=== PATIENT | male | born 1960 | race Two or more races ===

== ENCOUNTER 2021-10-05 09:19 | Inpatient (IN) | payer MEDICAID ==
[~2021-10-05] VITALS: Ht 182.9 cm; Wt 108.5 kg
[2021-10-05] MEDS ORDERED: AZITHROMYCIN 500MG/ 250ML 250 ML IV ONE (10:00)
[2021-10-05] MEDS ORDERED: cefTRIAXone 1GM/50ML D5W 50 ML IV ONE (10:00)
[2021-10-05] MEDS ORDERED: DexAMETHasone SOD PHOS 10MG/1ML VIAL INJ IV ONE (10:00)
[2021-10-05 11:32] LABS: Basophils # (auto) 0 10 ^3/uL (0-0.2); Basophils % (auto) 0.3 % (0.0-2.0); Eosinophils # (auto) 0 10 ^3/uL (0-0.8); Eosinophils % (auto) 0.2 % (0.0-7.0); Hematocrit 49.8 % (41.0-53.0); Hemoglobin 17.2 g/dL (13.5-17.5); Lymphocytes # (auto) 0.8 10 ^3/uL (0.4-5.4); Lymphocytes % (auto) 13.5 % (10.0-50.0); Mean Corpuscular Hemoglobin 30.9 pg (28.0-32.0); Mean Corpuscular Hgb Conc. 34.5 g/dL (32.0-36.0); Mean Corpuscular Volume 89.8 fL (80.0-100.0); Monocytes # (auto) 0.7 10 ^3/uL (0-1.3); Monocytes % (auto) 11.7 % (0.0-12.0); Neutrophils # (auto) 4.6 10 ^3/uL (1.6-8.6); Neutrophils % (auto) 74.3 % (37.0-80.0); Nucleated Red Blood Cells % 0.1 %; Red Blood Cells 5.55 10^6/uL (4.5-5.90); Red Cell Distribution Width 14.7 % (11.8-14.3); White Blood Cell 6.2 10^3/uL (4.4-10.8)
[2021-10-05 11:51] LABS: Calcium 8.7 mg/dL (8.5-10.1); Potassium 4.2 mmol/L (3.5-5.1)
[2021-10-05 12:00] LABS: Albumin 3.2 g/dL (3.4-5.0); BUN/Creatinine Ratio 23.7; Bilirubin, Total 0.6 mg/dL (0.2-1.0); Total Protein 7.8 g/dL (6.4-8.2)
[2021-10-05] MEDS ORDERED: NITROGLYCERIN 0.4 MG SL TAB SL PRN ×2 (13:30→15:30)
[2021-10-05] MEDS ORDERED: MORPHINE SULFATE INJECTION 2 MG/ML SYRG IV PRN ×3 (13:30→15:30)
[2021-10-05] MEDS ORDERED: LORazepam 0.5 MG TAB PO PRN (15:30)
[2021-10-05] MEDS ORDERED: HYDROcodone-ACET 5/325MG TAB PO PRN (15:30)
[2021-10-05] MEDS ORDERED: METOCLOPRAMIDE HCL 5MG/ml INJ 2ml VIAL IV PRN (15:30)
[2021-10-05] MEDS: SODIUM CHLORIDE 0.9% 1,000 ML IV SCH (15:30)
[2021-10-05] MEDS ORDERED: REMDESIVIR PER PHARMACY 0 ML IV SCH (15:30)
[2021-10-05] MEDS ORDERED: ALUM & MAG HYDROX-SIMETH LIQ(MAALOX) 30 ML PO PRN (15:30)
[2021-10-05] MEDS ORDERED: ACETAMINOPHEN 500 MG TAB PO PRN (15:30)
[2021-10-05] MEDS ORDERED: DOCUSATE SOD 100 MG CAP PO PRN (15:30)
[2021-10-05] MEDS ORDERED: FAMOTIDINE (10MG/ML) 2ML VL IV ONE (15:45)
[2021-10-05] MEDS: CHOLECALCIFEROL (VITD3) 2,000 UNIT CAP/TAB PO SCH (15:59)
[2021-10-05] MEDS: ZINC SULFATE 220mg CAP or TAB PO SCH (15:59)
[2021-10-05 17:04] LABS: Magnesium 2.5 mg/dL (1.6-2.6)
[2021-10-05 17:09] LABS: Thyroid Stimulating Hormone 0.95 uIU/mL (0.358-3.74)
[2021-10-05 17:11] LABS: Cholesterol 95 mg/dL (< 200)
[2021-10-05 17:13] LABS: CRP High Sensitivity 1.4 mg/dL (< 0.3)
[2021-10-05 17:14] LABS: HDL Cholesterol 31 mg/dL (40-59); LDL Cholesterol 41 mg/dL (< 100); Triglycerides 108 mg/dL (< 150)
[2021-10-05 19:34] LABS: Albumin 3.3 g/dL (3.4-5.0); Calcium 8.9 mg/dL (8.5-10.1); Potassium 4.2 mmol/L (3.5-5.1)
[2021-10-05 19:41] LABS: BUN/Creatinine Ratio 24.4; Bilirubin, Total 0.5 mg/dL (0.2-1.0); Total Protein 7.8 g/dL (6.4-8.2)
[2021-10-05] MEDS ORDERED: ATORVASTATIN 20 MG TAB PO SCH (22:00)
[2021-10-05] MEDS ORDERED: REMDESIVIR 200 MG in NS 210ml LOADING DOSE ADULT IV ONE (22:00)
[2021-10-05] MEDS: ENOXAPARIN SOD 40 MG/0.4 ML SYRINGE SC SCH (22:00)
[2021-10-05] MEDS: FAMOTIDINE (10MG/ML) 2ML VL IV SCH (22:00)
[2021-10-05] MEDS: BUDESONIDE (INHALATION) 180 MCG IH IN SCH (22:00)
[2021-10-06 04:19] VITALS: BP 141/86
[2021-10-06 08:00] VITALS: BP 144/88
[2021-10-06 09:00] VITALS: BP_SYST 117; BP_SYST 144; BP_DIAS 88; BP_DIAS 91
[2021-10-06] MEDS: BUDESONIDE (INHALATION) 180 MCG IH IN SCH ×2 (09:50→19:07)
[2021-10-06] MEDS: cefTRIAXone 1GM/50ML D5W 50 ML IV SCH (10:20)
[2021-10-06] MEDS: DexAMETHasone SOD PHOS 10MG/1ML VIAL INJ IV SCH (10:20)
[2021-10-06] MEDS: ENOXAPARIN SOD 40 MG/0.4 ML SYRINGE SC SCH ×2 (10:21→21:20)
[2021-10-06] MEDS: CHOLECALCIFEROL (VITD3) 2,000 UNIT CAP/TAB PO SCH (10:21)
[2021-10-06] MEDS: ZINC SULFATE 220mg CAP or TAB PO SCH (10:21)
[2021-10-06] MEDS: ASPirin 81 mg TAB PO SCH (10:22)
[2021-10-06] MEDS: FAMOTIDINE (10MG/ML) 2ML VL IV SCH ×2 (10:22→21:20)
[2021-10-06] MEDS: SODIUM CHLORIDE 0.9% 1,000 ML IV SCH (10:33)
[2021-10-06 10:49] LABS: Hematocrit 48.2 % (41.0-53.0); Hemoglobin 15.9 g/dL (13.5-17.5); Mean Corpuscular Hemoglobin 29.4 pg (28.0-32.0); Mean Corpuscular Volume 89.1 fL (80.0-100.0); Red Blood Cells 5.41 10^6/uL (4.5-5.90); Red Cell Distribution Width 14.5 % (11.8-14.3); White Blood Cell 5.1 10^3/uL (4.4-10.8)
[2021-10-06 10:53] LABS: Basophils % (manual) 0 (0.0-2.0); Blast Cells 0; Metamyelocytes % 0; Myelocytes % 0; Promyelocytes % 0; Reactive Lymphocytes 0
[2021-10-06 11:03] LABS: Albumin 2.8 g/dL (3.4-5.0); INR 1.16 (0.9-1.15); Partial Thromboplastin Time 30.9 sec (23.6-33.0); Potassium 4.3 mmol/L (3.5-5.1)
[2021-10-06 11:07] LABS: BUN/Creatinine Ratio 20.3; Calcium 8.4 mg/dL (8.5-10.1); Magnesium 2.1 mg/dL (1.6-2.6)
[2021-10-06 11:17] LABS: Bilirubin, Total 0.5 mg/dL (0.2-1.0); Phosphorus 3.6 mg/dL (2.5-4.90); Total Protein 6.7 g/dL (6.4-8.2)
[2021-10-06 11:42] LABS: Band Neutrophils % (manual) 2; Eosinophils % (manual) 2 (0-7); Lymphocytes % (manual) 18 (10.0-50.0); Monocytes % (manual) 9 (0-12)
[2021-10-06 13:00] VITALS: BP 137/82
[2021-10-06] MEDS: AZITHROMYCIN 500MG/ 250ML 250 ML IV SCH (13:54)
[2021-10-06 17:00] VITALS: BP 146/86
[2021-10-06] MEDS ORDERED: DEXTROSE (50%) 50ML SYRG IV PRN (17:30)
[2021-10-06] MEDS: InsuLIN REG 1unit/0.01ml Soln (100units/ml) SC SCH (18:42)
[2021-10-06] MEDS: ACCU-CHEK COMFORT CURVE STRIP VI SCH (18:43)
[2021-10-06 22:00] VITALS: BP 149/105
[2021-10-07] VITALS (7 sets, daily range): BP systolic 139–151; BP diastolic 90–108
[2021-10-07] MEDS: ACCU-CHEK COMFORT CURVE STRIP VI SCH ×4 (01:25→18:00)
[2021-10-07] MEDS: InsuLIN REG 1unit/0.01ml Soln (100units/ml) SC SCH ×4 (06:00→18:00)
[2021-10-07] MEDS: ALBUTEROL SULF HFA 90MCG INH 200DOSE IN PRN ×2 (07:23→21:12)
[2021-10-07 07:27] LABS: Urine Bacteria FEW /hpf (None Seen); Urine Blood Negative /uL (Negative); Urine Specific Gravity 1.016 (1.001-1.035); Urine Sperm PRESENT /hpf (None Seen); Urine WBC 1 /hpf (0 - 3)
[2021-10-07 07:38] LABS: Alcohol, Urine < 3.0 mg/dL (0-10); Amphetamine Screen, Urine NEGATIVE (NEGATIVE); Barbiturate Scree,Urine NEGATIVE (NEGATIVE); Benzodiazephine Screen, Urine NEGATIVE (NEGATIVE); Cannabinoid Screen, Urine NEGATIVE (NEGATIVE); Cocaine Screen, Urine NEGATIVE (NEGATIVE); Opiate Scree,Urine NEGATIVE (NEGATIVE); Phencyclidine Screen, Urine NEGATIVE (NEGATIVE)
[2021-10-07 08:28] LABS: Albumin 3.1 g/dL (3.4-5.0); Calcium 8.7 mg/dL (8.5-10.1); Potassium 4.2 mmol/L (3.5-5.1)
[2021-10-07 08:34] LABS: BUN/Creatinine Ratio 17.1; Bilirubin, Total 0.6 mg/dL (0.2-1.0); Total Protein 7.6 g/dL (6.4-8.2)
[2021-10-07] MEDS: BUDESONIDE (INHALATION) 180 MCG IH IN SCH ×2 (09:43→21:12)
[2021-10-07] MEDS: cefTRIAXone 1GM/50ML D5W 50 ML IV SCH (09:48)
[2021-10-07] MEDS: DexAMETHasone SOD PHOS 10MG/1ML VIAL INJ IV SCH (09:49)
[2021-10-07] MEDS: FAMOTIDINE (10MG/ML) 2ML VL IV SCH ×2 (09:50→22:07)
[2021-10-07] MEDS: ENOXAPARIN SOD 40 MG/0.4 ML SYRINGE SC SCH ×2 (09:50→22:07)
[2021-10-07] MEDS: ZINC SULFATE 220mg CAP or TAB PO SCH (09:50)
[2021-10-07] MEDS: CHOLECALCIFEROL (VITD3) 2,000 UNIT CAP/TAB PO SCH (09:50)
[2021-10-07] MEDS: ASPirin 81 mg TAB PO SCH (09:50)
[2021-10-07] MEDS: AZITHROMYCIN 500MG/ 250ML 250 ML IV SCH (12:00)
[2021-10-07] MEDS ORDERED: IOHEXOL 350 MG/ML 100ML IJ ONE (12:05)
[2021-10-07 14:08] LABS: Hepatitis A Ab IgM Negative; Hepatitis B Core IgM Negative; Hepatitis C Antibody Negative (Negative)
[2021-10-07] MEDS: REMDESIVIR 100mg 100 MG in SODIUM CHL 0.9% 230 ML IV SCH (15:13)
[2021-10-07] MEDS ORDERED: hydrALAZINE HCL 20 MG/ML VL IV PRN (19:15)
[2021-10-08] MEDS: InsuLIN REG 1unit/0.01ml Soln (100units/ml) SC SCH ×5 (00:15→22:43)
[2021-10-08 05:31] VITALS: BP 155/100
[2021-10-08] MEDS: BUDESONIDE (INHALATION) 180 MCG IH IN SCH ×3 (06:10→20:00)
[2021-10-08] MEDS: ALBUTEROL SULF HFA 90MCG INH 200DOSE IN PRN ×2 (06:10→20:01)
[2021-10-08] MEDS: ACCU-CHEK COMFORT CURVE STRIP VI SCH ×4 (06:35→18:00)
[2021-10-08] MEDS: cefTRIAXone 1GM/50ML D5W 50 ML IV SCH (09:00)
[2021-10-08 09:30] VITALS: BP 149/100
[2021-10-08 09:44] LABS: Albumin 3.3 g/dL (3.4-5.0); Calcium 8.8 mg/dL (8.5-10.1); Potassium 4.1 mmol/L (3.5-5.1)
[2021-10-08 09:48] LABS: BUN/Creatinine Ratio 16.8; Bilirubin, Total 0.8 mg/dL (0.2-1.0)
[2021-10-08] MEDS: DexAMETHasone SOD PHOS 10MG/1ML VIAL INJ IV SCH (10:00)
[2021-10-08] MEDS: ENOXAPARIN SOD 40 MG/0.4 ML SYRINGE SC SCH ×2 (10:00→22:43)
[2021-10-08] MEDS: ASPirin 81 mg TAB PO SCH (10:00)
[2021-10-08] MEDS: FAMOTIDINE (10MG/ML) 2ML VL IV SCH ×2 (10:00→22:42)
[2021-10-08] MEDS: CHOLECALCIFEROL (VITD3) 2,000 UNIT CAP/TAB PO SCH (10:00)
[2021-10-08] MEDS: AZITHROMYCIN 500MG/ 250ML 250 ML IV SCH (10:00)
[2021-10-08] MEDS: LISINOPRIL 20 MG TAB PO SCH (10:00)
[2021-10-08] MEDS: ZINC SULFATE 220mg CAP or TAB PO SCH (10:00)
[2021-10-08 13:00] VITALS: BP 128/83
[2021-10-08] MEDS: REMDESIVIR 100mg 100 MG in SODIUM CHL 0.9% 230 ML IV SCH (15:45)
[2021-10-08 16:41] VITALS: BP 125/81
[2021-10-08 20:00] VITALS: BP 149/100
[2021-10-08 22:00] VITALS: BP 115/86
[2021-10-09 05:00] VITALS: BP 118/76
[2021-10-09] MEDS: InsuLIN REG 1unit/0.01ml Soln (100units/ml) SC SCH ×3 (06:00→18:00)
[2021-10-09] MEDS: ACCU-CHEK COMFORT CURVE STRIP VI SCH ×4 (06:07→17:51)
[2021-10-09 07:09] LABS: INR 1.21 (0.9-1.15)
[2021-10-09 08:00] VITALS: BP 126/81
[2021-10-09] MEDS: cefTRIAXone 1GM/50ML D5W 50 ML IV SCH (09:00)
[2021-10-09] MEDS: BUDESONIDE (INHALATION) 180 MCG IH IN SCH ×2 (09:05→21:10)
[2021-10-09] MEDS: ALBUTEROL SULF HFA 90MCG INH 200DOSE IN PRN ×2 (09:05→23:20)
[2021-10-09] MEDS: ZINC SULFATE 220mg CAP or TAB PO SCH (10:00)
[2021-10-09] MEDS: DexAMETHasone SOD PHOS 10MG/1ML VIAL INJ IV SCH (10:00)
[2021-10-09] MEDS: ENOXAPARIN SOD 40 MG/0.4 ML SYRINGE SC SCH ×2 (10:00→21:21)
[2021-10-09] MEDS: ASPirin 81 mg TAB PO SCH (10:00)
[2021-10-09] MEDS: FAMOTIDINE (10MG/ML) 2ML VL IV SCH ×2 (10:00→21:21)
[2021-10-09] MEDS: CHOLECALCIFEROL (VITD3) 2,000 UNIT CAP/TAB PO SCH (10:00)
[2021-10-09] MEDS: LISINOPRIL 20 MG TAB PO SCH (10:00)
[2021-10-09] MEDS: AZITHROMYCIN 500MG/ 250ML 250 ML IV SCH (10:00)
[2021-10-09 12:00] VITALS: BP 114/78
[2021-10-09] MEDS: REMDESIVIR 100mg 100 MG in SODIUM CHL 0.9% 230 ML IV SCH (15:35)
[2021-10-09 16:01] VITALS: BP 117/85
[2021-10-09 22:00] VITALS: BP 114/69
[2021-10-10] MEDS: ACCU-CHEK COMFORT CURVE STRIP VI SCH ×4 (00:15→17:59)
[2021-10-10 05:00] VITALS: BP 115/69
[2021-10-10] MEDS: InsuLIN REG 1unit/0.01ml Soln (100units/ml) SC SCH ×4 (06:00→18:00)
[2021-10-10 07:18] LABS: Potassium 5.3 mmol/L (3.5-5.1)
[2021-10-10 07:26] LABS: BUN/Creatinine Ratio 23.5; Bilirubin, Total 0.8 mg/dL (0.2-1.0); Calcium 8.4 mg/dL (8.5-10.1); Total Protein 7.2 g/dL (6.4-8.2)
[2021-10-10 08:00] VITALS: BP 110/76
[2021-10-10] MEDS: ALBUTEROL SULF HFA 90MCG INH 200DOSE IN PRN ×2 (08:02→19:54)
[2021-10-10] MEDS: BUDESONIDE (INHALATION) 180 MCG IH IN SCH ×2 (08:02→19:54)
[2021-10-10] MEDS: cefTRIAXone 1GM/50ML D5W 50 ML IV SCH (09:00)
[2021-10-10] MEDS: ZINC SULFATE 220mg CAP or TAB PO SCH (10:00)
[2021-10-10] MEDS: AZITHROMYCIN 500MG/ 250ML 250 ML IV SCH (10:00)
[2021-10-10] MEDS: LISINOPRIL 20 MG TAB PO SCH (10:00)
[2021-10-10] MEDS: ASPirin 81 mg TAB PO SCH (10:00)
[2021-10-10] MEDS: DexAMETHasone SOD PHOS 10MG/1ML VIAL INJ IV SCH (10:00)
[2021-10-10] MEDS: CHOLECALCIFEROL (VITD3) 2,000 UNIT CAP/TAB PO SCH (10:00)
[2021-10-10] MEDS: ENOXAPARIN SOD 40 MG/0.4 ML SYRINGE SC SCH ×2 (10:00→22:35)
[2021-10-10] MEDS: FAMOTIDINE (10MG/ML) 2ML VL IV SCH ×2 (10:00→22:35)
[2021-10-10 12:00] VITALS: BP 111/78
[2021-10-10] MEDS ORDERED: SODIUM ZIRCONIUM CYCL 10 GM PAK PO ONE (13:30)
[2021-10-10] MEDS: REMDESIVIR 100mg 100 MG in SODIUM CHL 0.9% 230 ML IV SCH (15:00)
[2021-10-10 16:00] VITALS: BP 103/69
[2021-10-10 22:00] VITALS: BP 96/61
[2021-10-11] MEDS: ACCU-CHEK COMFORT CURVE STRIP VI SCH ×4 (00:14→17:05)
[2021-10-11 05:00] VITALS: BP 116/84
[2021-10-11] MEDS: InsuLIN REG 1unit/0.01ml Soln (100units/ml) SC SCH ×4 (06:00→17:06)
[2021-10-11 09:07] LABS: INR 1.18 (0.9-1.15)
[2021-10-11] MEDS: ASPirin 81 mg TAB PO SCH (09:30)
[2021-10-11] MEDS: DexAMETHasone SOD PHOS 10MG/1ML VIAL INJ IV SCH (09:30)
[2021-10-11] MEDS: CHOLECALCIFEROL (VITD3) 2,000 UNIT CAP/TAB PO SCH (09:30)
[2021-10-11] MEDS: ZINC SULFATE 220mg CAP or TAB PO SCH (09:30)
[2021-10-11] MEDS: FAMOTIDINE (10MG/ML) 2ML VL IV SCH (09:30)
[2021-10-11] MEDS: ENOXAPARIN SOD 40 MG/0.4 ML SYRINGE SC SCH (09:31)
[2021-10-11] MEDS: LISINOPRIL 20 MG TAB PO SCH (09:34)
[2021-10-11] MEDS: BUDESONIDE (INHALATION) 180 MCG IH IN SCH (09:44)
[2021-10-11] MEDS: ALBUTEROL SULF HFA 90MCG INH 200DOSE IN PRN (09:46)
[2021-10-11 10:04] LABS: CRP High Sensitivity 0.24 mg/dL (< 0.3); Magnesium 2.4 mg/dL (1.6-2.6); Potassium 4.5 mmol/L (3.5-5.1)
[2021-10-11] MEDS ORDERED: ALBUAER3 IN (12:50)
[2021-10-11] MEDS ORDERED: ZINC220T6 PO (12:55)
[2021-10-11] MEDS ORDERED: FAMO20TA10 PO (12:55)
[2021-10-11] MEDS ORDERED: DEX4T PO (12:55)
[2021-10-11] MEDS ORDERED: BUDE2SUS3 IN (12:55)
[2021-10-11] MEDS ORDERED: ASPI-378 PO (12:55)
[2021-10-11] MEDS ORDERED: LISI20TA28 PO (12:55)
[2021-10-11] MEDS ORDERED: METF-370 PO (12:55)
[2021-10-11] MEDS ORDERED: DOXY-286 PO (12:55)
[2021-10-11] MEDS ORDERED: ASCO500T11 PO (12:59)
[2021-10-11] MEDS ORDERED: CHOL20007 PO (12:59)
== END 2021-10-11 17:57 | disposition home or self-care (01) | DRG 720 ==
LOC: ER 09:19 → TELE 13:28 → TELE-WESTW 10-06 03:15
PROVIDERS: ADMIT Hospitalist; ATTEND Internal Medicine
PROC: XW033E5 Introduction of Remdesivir Anti-infective into Peripheral Vein, Percutaneous Approach, New Technology Group 5 (ICD-10-PCS; principal; 2021-10-05)
DX: A41.89 Other specified sepsis (principal); J96.01 Acute respiratory failure with hypoxia; J12.82 Pneumonia due to coronavirus disease 2019; U07.1 COVID-19; D89.839 Cytokine release syndrome, grade unspecified; E55.9 Vitamin D deficiency, unspecified; E11.9 Type 2 diabetes mellitus without complications; I10 Essential (primary) hypertension; R53.81 Other malaise; Z23 Encounter for immunization
CPT/HCPCS: 36415; 36600; 71045; 71275; 80053; 80061; 80074; 80307; 81001; 82306; 82728; 82805; 82962; 83036; 83605; 83615; 83735; 83880; 84100; 84132; 84443; 84484; 85007; 85025; 85027; 85379; 85610; 85730; 86141; 87040; 87081; 87086; 87426; 93005; 93970; 94640; 96365; 97163; 99291; G0378; J0696; J1100; J1815; J3490